=== PATIENT | female | born 1940 | race Hispanic/Latino ===

== ENCOUNTER 2019-08-30 13:36 | Emergency (ER) | payer MEDICARE, OTHER ==
[~2019-08-30] VITALS: Ht 154.9 cm; Wt 113.4 kg
[2019-08-30] MEDS ORDERED: TETANUS/DIPHTHERIA TOX ADULT 0.5 ML SYR ONE (13:58)
[2019-08-30] MEDS ORDERED: TETANUS/DIPHTHERIA TOX ADULT 0.5 ML SYR IM ONE (14:00)
== END 2019-08-30 14:14 | disposition home or self-care (01) ==
LOC: FSED 13:36
DX: S61.211A Laceration without foreign body of left index finger without damage to nail, initial encounter (principal); W45.8XXA Other foreign body or object entering through skin, initial encounter; Y92.008 Other place in unspecified non-institutional (private) residence as the place of occurrence of the external cause
CPT/HCPCS: 90714; 99283

== ENCOUNTER 2024-01-02 10:33 | Emergency (ER) | payer MEDICARE ==
[~2024-01-02] VITALS: Ht 152.4 cm; Wt 84.2 kg
[2024-01-02] MEDS ORDERED: AMLODIPINE BESY10 MG PO (11:05)
[2024-01-02] MEDS ORDERED: PROTONIX20 MG PO (11:05)
[2024-01-02] MEDS ORDERED: ALENDRONATE SOD70 MG (11:05)
[2024-01-02] MEDS ORDERED: BENICAR20 MG PO (11:05)
[2024-01-02] MEDS ORDERED: ATORVASTATIN CA20 MG PO (11:05)
[2024-01-02] MEDS: ACETAMINOPHEN 325 MG TAB PO ONE (11:16)
[2024-01-02] MEDS: IBUPROFEN 600 MG TAB PO STA (11:16)
[2024-01-02] MEDS ORDERED: IOPAMIDOL 370 MG/ML 100 ML INFUS..BTL INJ ONE (11:58)
[2024-01-02] MEDS: SODIUM CHLORIDE 0.9% 1000ML 1,000 ML IV ONE (13:15)
[2024-01-02] MEDS ORDERED: AZITHROMYCIN250 MG PO (13:53)
[2024-01-02 14:15] VITALS: PULSE 95; RESP 20; TEMP 99.7; O2SAT 96
== END 2024-01-02 14:15 | disposition home or self-care (01) ==
LOC: FSED 10:37
DX: U07.1 COVID-19 (principal); I10 Essential (primary) hypertension; E78.5 Hyperlipidemia, unspecified; K21.9 Gastro-esophageal reflux disease without esophagitis; Z79.899 Other long term (current) drug therapy
CPT/HCPCS: 71046; 71260; 80053; 85025; 99284; J7030; Q9967